=== PATIENT | male | born 1955 | race Caucasian/White ===

== ENCOUNTER 2020-07-09 05:26 | Day surgery (SDC) | payer OTHER ==
[2020-07-08 10:19] VITALS: BMI 45.0
[2020-07-09] MEDS ORDERED: Fentanyl 100 MCG/2 ML VIAL ONE (06:23)
[2020-07-09] MEDS ORDERED: Midazolam HCl 2 mg/2 ml Vial ONE (06:23)
[2020-07-09] MEDS ORDERED: Ketamine 50 MG/ML (10ML VIAL) ONE (07:26)
[2020-07-09] MEDS ORDERED: SUGAMMADEX SODIUM 200 MG/2 ML VIAL ONE (07:27)
[2020-07-09] MEDS ORDERED: Lidocaine 1.5%/Epinephrine 1:200,000 5 ML AMPUL IJ ONE (08:03)
== END 2020-07-09 08:59 | disposition home or self-care (01) ==
LOC: SDC 05:26
PROVIDERS: ATTEND Urology
PROC: 0V9 Male Reproductive System, Drainage (ICD-10-PCS; principal; 2020-07-09)
DX: N43.3 Hydrocele, unspecified (principal); I11.0 Hypertensive heart disease with heart failure; I50.9 Heart failure, unspecified; I48.91 Unspecified atrial fibrillation; E66.01 Morbid (severe) obesity due to excess calories; E11.65 Type 2 diabetes mellitus with hyperglycemia; N40.0 Benign prostatic hyperplasia without lower urinary tract symptoms; I25.10 Atherosclerotic heart disease of native coronary artery without angina pectoris; E78.5 Hyperlipidemia, unspecified; Z53.09 Procedure and treatment not carried out because of other contraindication; Z68.42 Body mass index [BMI] 45.0-49.9, adult; Z79.01 Long term (current) use of anticoagulants; Z79.02 Long term (current) use of antithrombotics/antiplatelets; Z79.899 Other long term (current) drug therapy; Z79.84 Long term (current) use of oral hypoglycemic drugs
CPT/HCPCS: 36416; J0690; J2250; J3010; J3490

== ENCOUNTER 2021-02-03 09:03 | Outpatient (CLI) | payer OTHER ==
[2020-07-07 14:43] LABS: Mean Corpuscular HGB CONC 30.7 g/dL (32.0-36.0); Mean Corpuscular Hemoglobin 24.9 pg (27.0-33.0); Mean Corpuscular Volume 81.3 fl (81.2-95.1); Mean Platelet Volume 10.3 fl (7.4-10.4); Platelet Count 234 10x3/uL (150-450); Red Blood Cell (RBC) Count 4.81 10x6/uL (4.32-5.72); White Blood Cell (WBC) Count 12.1 10x3/uL (3.5-10.5)
[2020-07-07 14:45] LABS: Bilirubin Neg (Negative); Blood, Urine Negative (Negative); Clarity Clear (Clear); Glucose, Urine (Dipstick) >=1000 mg/dL (Negative); Ketone, Urine Negative (Negative); Leukocyte Negative (Negative); Nitrite Negative (Negative); Protein, Urine (Dipstick) 30 mg/dl (Neg-Trace); Urobilinogen Normal mg/dL (Less than 2)
[2020-07-07 15:00] LABS: PTT 30.4 sec (22.0-33.0); Prothrombin Time 10.9 sec (9.5-12.1)
[2020-07-07 15:06] LABS: Anion Gap 16 mmol/L (10-20); BUN (Urea Nitrogen) 21 mg/dL (8.4-25.7); Calc. Creatinine Clearance 0 mL/min (70-130); Calcium 9.1 mg/dL (7.8-10.44); Carbon Dioxide 25 mmol/L (23-31); Chloride 100 mmol/L (98-107); Glucose 368 mg/dL (80-115); Potassium 4.4 mmol/L (3.5-5.1); Sodium 137 mmol/L (136-145)
[2020-07-07 15:53] LABS: Bacteria/HPF None Seen HPF (None Seen); RBC/HPF None Seen HPF (0-3); Squamous Epithelial None Seen HPF (0-3); WBC/HPF 0-3 HPF (0-3)
[2020-07-08 05:21] LABS: SARS-CoV-2 PCR by NAA Not Detected (NotDetected)
[2021-02-03 10:59] LABS: Hemoglobin 13.1 g/dL (13.5-17.5); Mean Corpuscular HGB CONC 32.4 g/dL (32.0-36.0); Mean Corpuscular Volume 83.1 fl (81.2-95.1); Mean Platelet Volume 9.9 fl (7.4-10.4); Platelet Count 249 10x3/uL (150-450); RBC Distribution Width 15.7 % (11.5-14.5); Red Blood Cell (RBC) Count 4.86 10x6/uL (4.32-5.72)
[2021-02-03 11:16] LABS: Anion Gap 16 mmol/L (10-20); BUN (Urea Nitrogen) 18 mg/dL (8.4-25.7); Calc. Creatinine Clearance 0 mL/min (70-130); Calcium 9.8 mg/dL (7.8-10.44); Carbon Dioxide 26 mmol/L (23-31); Chloride 100 mmol/L (98-107); Glucose 400 mg/dL (80-115); Potassium 4.8 mmol/L (3.5-5.1); Sodium 137 mmol/L (136-145)
[2021-02-03 11:24] LABS: INR-International Normal Ratio 0.9; PTT 26.9 sec (22.0-33.0); Prothrombin Time 10.1 sec (9.5-12.1)
[2021-02-03 11:34] LABS: Bilirubin Neg (Negative); Blood, Urine Negative (Negative); Clarity Clear (Clear); Glucose, Urine (Dipstick) 250 mg/dL (Negative); Ketone, Urine Negative (Negative); Leukocyte Negative (Negative); Nitrite Negative (Negative); Protein, Urine (Dipstick) 15 mg/dl (Neg-Trace); Urobilinogen Normal mg/dL (Less than 2)
[2021-02-03 11:53] LABS: Bacteria/HPF None Seen HPF (None Seen); RBC/HPF 0-3 HPF (0-3); Squamous Epithelial None Seen HPF (0-3); WBC/HPF 0-3 HPF (0-3)
[2021-02-03 12:03] LABS: Calcium Oxalate Crystals 1+ HPF (None Seen)
[2021-02-03 19:16] LABS: SARS-CoV-2 PCR by NAA Not Detected (NotDetected)
== END 2021-02-03 09:04 | disposition home or self-care (01) ==
LOC: LABBT 09:03
PROVIDERS: ATTEND Urology
DX: Z01.818 Encounter for other preprocedural examination (principal); I51.7 Cardiomegaly; J90 Pleural effusion, not elsewhere classified; N43.3 Hydrocele, unspecified; I50.9 Heart failure, unspecified; E11.65 Type 2 diabetes mellitus with hyperglycemia; E66.01 Morbid (severe) obesity due to excess calories; N40.0 Benign prostatic hyperplasia without lower urinary tract symptoms; Z20.822 Contact with and (suspected) exposure to COVID-19
CPT/HCPCS: 71046; 80048; 81001; 85027; 85610; 85730; 87086; 93005; 93010; U0003; U0005